=== PATIENT | female | born 1945 | race Caucasian/White ===

== ENCOUNTER 2022-06-26 03:36 | Inpatient (IN) | payer MEDICARE ==
[~2022-06-26] VITALS: Ht 165.9 cm; Wt 44.5 kg
[2022-06-26] VITALS (16 sets, daily range): BP systolic 80–168; BP diastolic 58–90
[~2022-06-26 03:36] MED LIST: ALPRAZOLAM1 MG PO; PANTOPRAZOLE SO40 MG PO; SIMVASTATIN20 MG PO; VASOTEC10 MG PO
[2022-06-26 03:59] LABS: BASOPHILS # (AUTO) 0.1 (0.0-0.1); BASOPHILS % 0.5 % (0.0-1.0); EOSINOPHILS # (AUTO) 0.2 (0.0-0.4); EOSINOPHILS % 1.5 % (0.0-6.0); HEMATOCRIT 26.5 % (34.2-44.1); HEMOGLOBIN 8.4 g/dL (12.0-16.0); LYMPHOCYTES # (AUTO) 1.7 (1.0-3.2); LYMPHOCYTES % 16.5 % (18.0-39.1); MEAN CORPUSCULAR HEMOGLOBIN 31.2 pg (28-32); MEAN CORPUSCULAR HGB CONC 31.7 g/dL (31-35); MEAN CORPUSCULAR VOLUME 98.5 fL (81-99); MONOCYTES # (AUTO) 1.4 (0.2-0.8); MONOCYTES % 13.7 % (4.4-11.3); NEUTROPHILS # (AUTO) 6.8 (2.1-6.9); NEUTROPHILS % 67.1 % (38.7-80.0); PLATELET COUNT 356 x10e3/uL (140-360); RED BLOOD COUNT 2.69 x10e6/uL (3.6-5.1); RED CELL DISTRIBUTION WIDTH 16.1 % (11.7-14.4)
[2022-06-26 04:08] LABS: INR 0.89; PARTIAL THROMBOPLASTIN TIME 30.2 seconds (23.8-35.5); PROTHROMBIN TIME 12.9 seconds (11.9-14.5)
[2022-06-26] MEDS ORDERED: SODIUM CHLORIDE 0.9% 250ML 250 ML IV ONE (04:15)
[2022-06-26] MEDS: OCTREOTIDE ACETATE 500 MCG in SODIUM CHLORIDE 0.9% 250ML 250 ML IV SCH ×2 (04:15→15:38)
[2022-06-26 04:17] LABS: ALBUMIN 2.7 g/dL (3.5-5.0); ANION GAP 12.7 mmol/L (8-16); CALCIUM 8.3 mg/dL (8.4-10.2); CREATININE, SERUM 0.71 mg/dL (0.57-1.11); POTASSIUM 3.7 mmol/L (3.5-5.1)
[2022-06-26 04:22] LABS: CREATINE KINASE MB 2.1 ng/mL (0-5.0)
[2022-06-26] MEDS: SODIUM CHLORIDE 0.9% 1000ML 1,000 ML IV SCH ×3 (05:29→20:03)
[2022-06-26 07:03] LABS: HEMATOCRIT 20.6 % (34.2-44.1); HEMOGLOBIN 6.6 g/dL (12.0-16.0)
[2022-06-26] MEDS ORDERED: ONDANSETRON HCL INJ 2MG/ML 2ML 2 MG/ML VIAL IV PRN (12:00)
[2022-06-26] MEDS: HYDRALAZINE HCL 20 MG/ML VIAL IV PRN (12:25)
[2022-06-26] MEDS: HALOPERIDOL LACTATE 5 MG/ML VIAL IM PRN (14:26)
[2022-06-26 15:49] LABS: CREATINE KINASE MB 1.7 ng/mL (0-5.0)
[2022-06-26 18:59] LABS: HEMOGLOBIN 7.1 g/dL (12.0-16.0)
[2022-06-26 19:02] LABS: HEMATOCRIT 22.2 % (34.2-44.1)
[2022-06-27] VITALS (27 sets, daily range): BP systolic 107–156; BP diastolic 50–118
[2022-06-27] MEDS: OCTREOTIDE ACETATE 500 MCG in SODIUM CHLORIDE 0.9% 250ML 250 ML IV SCH ×3 (00:07→20:46)
[2022-06-27 00:34] LABS: HEMATOCRIT 18.9 % (34.2-44.1)
[2022-06-27] MEDS ORDERED: SODIUM CHLORIDE 0.9% 250ML 0 ML ONE (01:22)
[2022-06-27] MEDS: LORAZEPAM INJ 2 MG/ML VIAL IV PRN (03:22)
[2022-06-27] MEDS: SODIUM CHLORIDE 0.9% 1000ML 1,000 ML IV SCH ×4 (04:30→17:16)
[2022-06-27] MEDS ORDERED: SODIUM CHLORIDE 0.9% 250ML 250 ML ONE ×2 (05:06→12:17)
[2022-06-27 09:48] LABS: HEMOGLOBIN 8.3 g/dL (12.0-16.0)
[2022-06-27 10:25] LABS: ALBUMIN 2.3 g/dL (3.5-5.0); ALBUMIN/GLOBULIN RATIO 1.2 (0.8-2.0); ANION GAP 11.4 mmol/L (8-16); CALCIUM 7.7 mg/dL (8.4-10.2); CREATININE, SERUM 0.71 mg/dL (0.57-1.11); POTASSIUM 4.4 mmol/L (3.5-5.1)
[2022-06-27 16:28] LABS: HEMATOCRIT 23.1 % (34.2-44.1); HEMOGLOBIN 7.4 g/dL (12.0-16.0)
[2022-06-27 21:58] LABS: HEMATOCRIT 23.4 % (34.2-44.1); HEMOGLOBIN 7.5 g/dL (12.0-16.0)
[2022-06-28] VITALS (14 sets, daily range): BP systolic 119–183; BP diastolic 61–86
[2022-06-28] MEDS: SODIUM CHLORIDE 0.9% 1000ML 1,000 ML IV SCH (02:21)
[2022-06-28] MEDS: Morphine 2mg Syringe 2 MG/ML SYR IV PRN ×3 (03:03→13:13)
[2022-06-28 04:56] LABS: BASOPHILS % 0.3 % (0.0-1.0); EOSINOPHILS # (AUTO) 0.1 (0.0-0.4); EOSINOPHILS % 1.4 % (0.0-6.0); MEAN CORPUSCULAR HEMOGLOBIN 31.3 pg (28-32); MEAN CORPUSCULAR HGB CONC 33.3 g/dL (31-35); MEAN CORPUSCULAR VOLUME 93.8 fL (81-99); MONOCYTES # (AUTO) 0.7 (0.2-0.8); NEUTROPHILS # (AUTO) 4.5 (2.1-6.9); NEUTROPHILS % 67.9 % (38.7-80.0); PLATELET COUNT 208 x10e3/uL (140-360); RED BLOOD COUNT 1.95 x10e6/uL (3.6-5.1)
[2022-06-28 05:01] LABS: HEMATOCRIT 18.3 % (34.2-44.1); HEMOGLOBIN 6.1 g/dL (12.0-16.0)
[2022-06-28 05:15] LABS: ANION GAP 6.4 mmol/L (8-16); CREATININE, SERUM 0.57 mg/dL (0.57-1.11); POTASSIUM 3.4 mmol/L (3.5-5.1)
[2022-06-28 05:24] LABS: CALCIUM 6.7 mg/dL (8.4-10.2)
[2022-06-28] MEDS ORDERED: SODIUM CHLORIDE 0.9% 250ML 250 ML ONE (06:33)
[2022-06-28] MEDS: HYDRALAZINE HCL 20 MG/ML VIAL IV PRN ×2 (07:50→12:21)
[2022-06-28] MEDS: OCTREOTIDE ACETATE 500 MCG in SODIUM CHLORIDE 0.9% 250ML 250 ML IV SCH (09:28)
[2022-06-28] MEDS: HALOPERIDOL LACTATE 5 MG/ML VIAL IM PRN (10:14)
[2022-06-28 12:01] LABS: HEMATOCRIT 27.8 % (34.2-44.1); HEMOGLOBIN 9.1 g/dL (12.0-16.0)
[2022-06-28] MEDS: LORAZEPAM INJ 2 MG/ML VIAL IV PRN (14:08)
[2022-06-29 04:00] VITALS: BP 175/78
[2022-06-29 08:00] VITALS: BP 159/76
[2022-06-29 09:02] VITALS: BP 117/63
[2022-06-29 09:03] VITALS: BP 117/63
[2022-06-29] MEDS: LORAZEPAM INJ 2 MG/ML VIAL IV PRN ×2 (11:50→19:42)
[2022-06-29] MEDS: Morphine 2mg Syringe 2 MG/ML SYR IV PRN (14:45)
[2022-06-29 19:36] VITALS: BP 148/65
== END 2022-06-29 19:58 | disposition hospice, home (50) | DRG 378 ==
LOC: ER 03:38 → ERHOLD 04:20 → ICU 05:49
PROVIDERS: ADMIT Internal Medicine; ATTEND Internal Medicine
PROC: 30233N1 Transfusion of Nonautologous Red Blood Cells into Peripheral Vein, Percutaneous Approach (ICD-10-PCS; principal; 2022-06-26)
DX: K92.2 Gastrointestinal hemorrhage, unspecified (principal); D62 Acute posthemorrhagic anemia; Z68.1 Body mass index [BMI] 19.9 or less, adult; Z66 Do not resuscitate; Z51.5 Encounter for palliative care; I10 Essential (primary) hypertension; K21.9 Gastro-esophageal reflux disease without esophagitis; F32.A Depression, unspecified; F41.9 Anxiety disorder, unspecified; F03.90 Unspecified dementia, unspecified severity, without behavioral disturbance, psychotic disturbance, mood disturbance, and anxiety; Z88.8 Allergy status to other drugs, medicaments and biological substances; R41.0 Disorientation, unspecified; R63.4 Abnormal weight loss; Z20.822 Contact with and (suspected) exposure to COVID-19
CPT/HCPCS: 36415; 74174; 80048; 80053; 82550; 82553; 84484; 85014; 85018; 85025; 85610; 85730; 86850; 86900; 86920; 94799; 99284; J0360; J0610; J1630; J2060; J2270; J2353; J7030; J7050; P9016